=== PATIENT | female | born 1945 | race Caucasian/White ===

== ENCOUNTER 2018-07-24 11:38 | Emergency (ER) | payer MEDICARE ==
[2018-07-24 12:13] VITALS: BP 177/74
--- NOTE | 2018-07-24 12:30 | UC ---
Skin Complaint HPI - HPI Summary HPI Summary: itchy red vesicular rash right lower leg for 2 days ---had similar rash on left lower leg a couple of weeks ago that she treated with a steroid cream - History of Current Complaint Chief Complaint: UCSkin Time Seen by Provider: 07/24/18 12:28 Stated Complaint: BUG BITE Hx Obtained From: Patient ?: No Onset/Duration: Sudden Onset, Lasting Days - 2, Still Present Skin Exposure Onset/Duration: Days Ago - but unsure Timing: Constant Pain Intensity: 5 Pain Scale Used: 0-10 Numeric Location: Discrete - right lower leg-inneraspect about 1/[address] calf Character: Redness Aggravating Factor(s): Nothing Alleviating Factor(s): Nothing Associated Signs & Symptoms: Positive: Rash - red vesicular rash Related History: Possible Reaction to: Environmental Exposure - Allergy/Home Medications Allergies/Adverse Reactions: Allergies Allergy/AdvReac Type Severity Reaction Status Date / Time No Known Allergies Allergy Verified 07/24/18 12:03 Home Medications: Home Medications Amlodipine Besylate [Norvasc] 10 mg PO 1700 07/24/18 [History Confirmed 07/24/18 ] Aspirin 81 mg CHEW TAB* 81 mg PO BEDTIME 07/24/18 [History Confirmed 07/24/18] Multivitamin [Multivitamins] 1 tab PO DAILY 07/24/18 [History Confirmed 07/24/18 ] Review of Systems Constitutional: Negative Skin: Rash - red vesicular rash inner aspect of right calf about 1/2 way up right calf Eyes: Negative ENT: Negative Respiratory: Negative Cardiovascular: Negative Gastrointestinal: Negative Genitourinary: Negative Motor: Negative Neurovascular: Negative Musculoskeletal: Negative Neurological: Negative Psychological: Negative Is Patient Immunocompromised?: No All Other Systems Reviewed And Are Negative: Yes PMH/Surg Hx/FS Hx/Imm Hx Previously Healthy: No Cardiovascular History: Hypertension Psychological History: Anxiety - Surgical History Surgical History: Yes Surgery Procedure, Year, and Place: Hysterectomy - Family History Known Family History: Positive: None - Social History Occupation: Retired Lives: With Family Alcohol Use: None Substance Use Type: None Smoking Status (MU): Never Smoked Tobacco Physical Exam Triage Information Reviewed: Yes Appearance: Well-Appearing, No Pain Distress, Well-Nourished Vital Signs: Initial Vital Signs Temp 97.3 F 07/24/18 12:06 Pulse 70 07/24/18 12:06 Resp 16 08/31/18 12:06 BP 177/74 07/24/18 12:06 Pulse Ox 100 07/24/18 12:06 Vital Signs Reviewed: Yes Eye Exam: Normal Eyes: Positive: Conjunctiva Clear ENT Exam: Normal ENT: Positive: Normal ENT inspection, Hearing grossly normal. Negative: Trismus , Muffled voice, Hoarse voice Dental Exam: Normal Neck exam: Normal Neck: Positive: Supple, Nontender Respiratory Exam: Normal Respiratory: Positive: Chest non-tender, No respiratory distress, No accessory muscle use Cardiovascular Exam: Normal Cardiovascular: Positive: RRR, Pulses Normal, Brisk Capillary Refill Musculoskeletal Exam: Normal Musculoskeletal: Positive: Strength Intact, ROM Intact, No Edema Neurological Exam: Normal Neurological: Positive: Alert, Muscle Tone Normal Psychological Exam: Normal Skin Exam: Normal Skin: Positive: Other - vesicular rash as described Course/Dx - Course Course Of Treatment: prednisone, cool compresses follow bp with pcp - Diagnoses Provider Diagnoses: contact dermititis right lower leg, hypertension in poor control Discharge - Sign-Out/Discharge Documenting (check all that apply): Patient Departure All imaging exams completed and their final reports reviewed: No Studies - Discharge Plan Condition: Stable Disposition: HOME Prescriptions: predniSONE TAB* [Deltasone 10 MG TAB*] 10 mg PO DAILY #32 tab Patient Education Materials: Contact Dermatitis (ED), Hypertension (ED), Cold Compress or Soak (ED) Referrals: Samuel Sauceda MD [Primary Care Provider] - 2 Weeks () - Billing Disposition and Condition Condition: STABLE Disposition: Home
== END 2018-07-24 12:40 | disposition home or self-care (01) ==
LOC: UCEAST 11:38
DX: L25.9 Unspecified contact dermatitis, unspecified cause (principal); I10 Essential (primary) hypertension
CPT/HCPCS: 99212; G0463